=== PATIENT | male | born 1985 | race Caucasian/White ===

== ENCOUNTER → 2021-02-16 09:28 | Outpatient (CLI) | payer BC, SELFPAY ==
[2021-02-17 14:25] LABS: Hematocrit 41.8 % (41-53); Hemoglobin 13.9 g/dL (13.5-17.5); Mean Corpuscular HGB Conc 33.2 % (30-36); Mean Corpuscular Hemoglobin 28.8 PG (26-34); Mean Corpuscular Volume 86.6 fL (80-100); Platelet Count 126 X10^3/uL (150-400); Red Blood Cell Count 4.82 X10^6/uL (4.5-5.9); Red Cell Distribution Width 14.3 % (11.6-14.8); White Blood Cell Count 5.1 X10^3/uL (4.5-11.0)
[2021-02-17 14:42] LABS: Add Manual Diff / Slide Review YES
[2021-02-17 15:21] LABS: Hemoglobin A1C% w Est Avg Glu 5.3 % (4.0-6.0)
[2021-02-17 15:53] LABS: Smudge Cells 1+
[2021-02-17 15:54] LABS: Neutrophils Absolute Manual 1479 /uL (3000-5900); Total Cells Counted 100
[2021-02-17 17:18] LABS: Alanine Aminotransferase 39 IU/L (<50); Albumin 4.2 g/dL (3.5-5.0); Albumin Globulin Ratio 1.8 (1.0-2.8); Alkaline Phosphatase 54 U/L (38-126); Aspartate Aminotransferase 26 IU/L (17-59); BUN Creatinine Ratio 23.4 (6-22); Bilirubin Total 0.6 mg/dL (0.2-1.3); Blood Urea Nitrogen 22 mg/dL (9-20); Calcium 9.4 mg/dL (8.4-10.2); Carbon Dioxide 31 mmol/L (22-32); Chloride 102 mmol/L (98-107); Cholesterol 151 mg/dL (140-199); Estimated Glomerular Filt Rate > 60.0 mL/min (>60); Globulin 2.3 g/dL (1.7-4.1); Glucose 104 mg/dL (70-100); HDL Cholesterol 35 mg/dL (40-60); HEMOLYSIS < 15 (0-50); LDL Cholesterol Calculated 84 mg/dL (<100); Potassium 4.2 mmol/L (3.4-5.1); Sodium 139 mmol/L (137-145); Total Protein 6.5 g/dL (6.3-8.2); Triglycerides 158 mg/dL (35-150); Uric Acid 4.8 mg/dL (3.5-8.5)
[2021-02-17 17:23] LABS: Vitamin D 25 Hydroxy (D3) 46.4 ng/mL (30.0-100.0)
== END ==
PROVIDERS: PCP Physician Assistant; Visit Provider Physician Assistant
DX: E55.9 Vitamin D deficiency, unspecified (principal); E78.5 Hyperlipidemia, unspecified; F90.9 Attention-deficit hyperactivity disorder, unspecified type; M10.9 Gout, unspecified
CPT/HCPCS: 80053; 80061; 82306; 83036; 84550; 85007; 85025

== ENCOUNTER → 2021-04-16 08:53 | Outpatient (CLI) | payer BC, SELFPAY ==
[2021-04-16 22:44] LABS: COVID19 - ORCAS (NP or Nasal) POSITIVE (Negative)
== END ==
PROVIDERS: PCP Physician Assistant; Visit Provider Physician Assistant Medical
DX: U07.1 COVID-19 (principal); Z20.822 Contact with and (suspected) exposure to COVID-19
CPT/HCPCS: U0003

== ENCOUNTER → 2021-04-30 11:20 | Outpatient (CLI) | payer BC, SELFPAY ==
[2021-04-30 19:10] LABS: Add Manual Diff / Slide Review NO; Basophils Absolute Auto 0 /uL (0-100); Basophils Percent Auto 0.9 % (0-2); Eosinophils Absolute Auto 100 /uL (0-450); Eosinophils Percent Auto 1.2 % (2-4); Hematocrit 40.4 % (41-53); Hemoglobin 13.9 g/dL (13.5-17.5); Lymphocytes Absolute Auto 1500 /uL (1100-4500); Lymphocytes Percent Auto 33.4 % (25-40); Mean Corpuscular HGB Conc 34.5 % (30-36); Mean Corpuscular Hemoglobin 29.3 PG (26-34); Mean Corpuscular Volume 84.9 fL (80-100); Monocytes Absolute Auto 500 /uL (0-900); Monocytes Percent Auto 10.6 % (3-14); Neutrophils Absolute Auto 2500 /uL (1500-7000); Neutrophils Percent Auto 53.9 % (50-75); Platelet Count 128 X10^3/uL (150-400); Red Blood Cell Count 4.75 X10^6/uL (4.5-5.9); Red Cell Distribution Width 14.3 % (11.6-14.8); White Blood Cell Count 4.6 X10^3/uL (4.5-11.0)
[2021-05-03 16:21] LABS: HIV 1 & 2 Ab/Ag 4th Gen Combo NEGATIVE (NEGATIVE)
== END ==
PROVIDERS: PCP Physician Assistant; Visit Provider Physician Assistant
DX: D70.9 Neutropenia, unspecified (principal)
CPT/HCPCS: 85025; 87389

== ENCOUNTER → 2021-05-07 10:19 | Outpatient (CLI) | payer BC, SELFPAY ==
[2021-05-07 19:42] LABS: Uric Acid 4.8 mg/dL (3.5-8.5)
[2021-05-07 19:49] LABS: Rheumatoid Factor < 8.6 IU/mL (<12.0)
[2021-05-07 19:56] LABS: Erythrocyte Sedimentation Rate 2 MM/HR (0-15)
[2021-05-11 14:57] LABS: ANA Screen, IFA Negative (.)
== END ==
PROVIDERS: PCP Physician Assistant; Visit Provider Family Medicine
DX: M10.9 Gout, unspecified (principal)
CPT/HCPCS: 84550; 85651; 86038; 86430

== ENCOUNTER → 2022-02-25 10:33 | Outpatient (CLI) | payer BC, SELFPAY ==
--- NOTE | 2022-02-25 10:35 | DI.CT.S_ITS ---
PROCEDURE: CT KIDNEY URETER BLADDER (KUB) INDICATIONS: Recurrent nephrolithiasis TECHNIQUE: Axial sections were acquired from the lung bases to the pubic symphysis. Coronal and sagittal reformats were performed. For radiation dose reduction, the following was used: automated exposure control, adjustment of mA and/or kV according to patient size. COMPARISON: None. FINDINGS: Image quality: Excellent. Lung bases: No pleural effusion. Punctate left lower lobe pulmonary nodule. Heart: No significant findings. Small hiatal hernia. URINARY: No hydronephrosis. Papillary calcifications or nonobstructing kidney stones. Bladder: Normal wall thickness. No stones. ABDOMEN: Liver: Unremarkable. Gallbladder: Unremarkable. Biliary ducts: Unremarkable. Pancreas: Unremarkable. Spleen: Unremarkable. Adrenal Glands: Unremarkable. Stomach and Bowel: Stomach, small bowel loops, and colon are unremarkable. Diverticulosis. Normal appendix. Peritoneum: No abnormal intraperitoneal fluid. No free air. Ventral Wall: No hernia. Abdominal Nodes: No enlarged retroperitoneal or mesenteric lymph nodes. Vessels: Aorta and inferior vena cava are normal in size. PELVIS: Pelvic Organs: Unremarkable. Pelvic Nodes: Unremarkable. Miscellaneous: No inguinal hernias are seen. Bones: No suspicious lesion. IMPRESSION: No hydronephrosis. Subtle density near the renal papillae bilaterally. This could be seen in the setting of medullary sponge kidney/medullary nephrocalcinosis, papillary necrosis, or small nonobstructing kidney stones. Dictated by: Satya Joya M.D. on 02/25/2022 at 11:49 Approved by: Satya Joya M.D. on 02/25/2022 at 11:56
== END ==
PROVIDERS: PCP Family Medicine; Referring Provider Family Medicine; Visit Provider Family Medicine
DX: N20.0 Calculus of kidney (principal); M54.9 Dorsalgia, unspecified; F90.9 Attention-deficit hyperactivity disorder, unspecified type; G89.29 Other chronic pain
CPT/HCPCS: 74176

== ENCOUNTER → 2022-07-25 13:28 | Outpatient (CLI) | payer OTHER, SELFPAY ==
[2022-07-25 20:35] LABS: Cholesterol 164 mg/dL (140-199); Erythrocyte Sedimentation Rate 4 MM/HR (0-15); HDL Cholesterol 41 mg/dL (40-60); LDL Cholesterol Calculated 77 mg/dL (<100); Triglycerides 229 mg/dL (35-150)
[2022-07-25 20:58] LABS: C-Reactive Protein Quant < 0.5 mg/dL (<1.0)
[2022-07-27 00:36] LABS: Labcorp Hemoglobin (Hb) A1c 5.4 % (4.8-5.6)
[2022-07-28 15:58] LABS: ANA Screen, IFA Negative (.)
== END ==
PROVIDERS: PCP Family Medicine; Visit Provider Family Medicine
DX: F32.A Depression, unspecified (principal); G89.29 Other chronic pain; L40.9 Psoriasis, unspecified; M54.16 Radiculopathy, lumbar region; M54.50 Low back pain, unspecified
CPT/HCPCS: 80061; 83036; 85651; 86038; 86140

== ENCOUNTER → 2022-08-23 13:03 | Outpatient (CLI) | payer OTHER, SELFPAY ==
[2022-08-23 20:38] LABS: C-Reactive Protein Quant < 0.5 mg/dL (<1.0)
[2022-08-23 20:42] LABS: Rheumatoid Factor < 8.6 IU/mL (<12.0)
[2022-08-23 21:15] LABS: Erythrocyte Sedimentation Rate 1 MM/HR (0-15)
[2022-08-25 20:07] LABS: CCP Antibodies IgG/IgA 4 units (0-19)
[2022-08-29 16:15] LABS: ANA Screen, IFA NEGATIVE
[2022-09-02 17:36] LABS: HLA B27 Negative (.)
== END ==
PROVIDERS: Internal Medicine Rheumatology; PCP Family Medicine; Visit Provider Family Medicine
DX: D70.9 Neutropenia, unspecified (principal); L40.9 Psoriasis, unspecified; M54.50 Low back pain, unspecified; M54.9 Dorsalgia, unspecified; R21 Rash and other nonspecific skin eruption
CPT/HCPCS: 81374; 85651; 86038; 86140; 86200; 86430

== ENCOUNTER → 2023-06-13 11:16 | Outpatient (CLI) | payer OTHER, SELFPAY ==
[2023-06-13 19:19] LABS: Add Manual Diff / Slide Review NO; Basophils Absolute Auto 0 /uL (0-100); Basophils Percent Auto 0.3 % (0-2); Eosinophils Absolute Auto 300 /uL (0-450); Eosinophils Percent Auto 5.8 % (2-4); Hematocrit 39.4 % (41-53); Hemoglobin 13.4 g/dL (13.5-17.5); Lymphocytes Absolute Auto 1200 /uL (1100-4500); Lymphocytes Percent Auto 20.5 % (25-40); Mean Corpuscular Hemoglobin 29.4 PG (26-34); Mean Corpuscular Volume 86.7 fL (80-100); Monocytes Absolute Auto 600 /uL (0-900); Neutrophils Absolute Auto 3600 /uL (1500-7000); Neutrophils Percent Auto 62.4 % (50-75); Platelet Count 126 X10^3/uL (150-400); Red Blood Cell Count 4.54 X10^6/uL (4.5-5.9); Red Cell Distribution Width 14.9 % (11.6-14.8); White Blood Cell Count 5.7 X10^3/uL (4.5-11.0)
[2023-06-13 19:48] LABS: Alanine Aminotransferase 28 IU/L (<50); Albumin 4.3 g/dL (3.5-5.0); Albumin Globulin Ratio 1.7 (1.0-2.8); Alkaline Phosphatase 60 U/L (38-126); Aspartate Aminotransferase 24 IU/L (17-59); BUN Creatinine Ratio 32.5 (6-22); Bilirubin Total 0.6 mg/dL (0.2-1.3); Blood Urea Nitrogen 25 mg/dL (9-20); Calcium 9.1 mg/dL (8.4-10.2); Carbon Dioxide 29 mmol/L (22-32); Cholesterol 144 mg/dL (140-199); Estimated Glomerular Filt Rate > 60 mL/min (>60); Globulin 2.6 g/dL (1.7-4.1); Glucose 93 mg/dL (70-100); HDL Cholesterol 36 mg/dL (40-60); HEMOLYSIS < 15 (0-50); LDL Cholesterol Calculated 75 mg/dL (<100); Total Protein 6.9 g/dL (6.3-8.2); Triglycerides 163 mg/dL (35-150)
[2023-06-13 19:56] LABS: Chloride 104 mmol/L (98-107); Potassium 4.3 mmol/L (3.4-5.1); Sodium 138 mmol/L (137-145)
[2023-06-13 20:21] LABS: Prostate Specific Antigen Scrn 1.64 ng/mL (0.1-4.0)
== END ==
PROVIDERS: PCP Family Medicine; Visit Provider Family Medicine
DX: Z51.81 Encounter for therapeutic drug level monitoring (principal); Z12.5 Encounter for screening for malignant neoplasm of prostate; M10.9 Gout, unspecified; D70.9 Neutropenia, unspecified; E78.5 Hyperlipidemia, unspecified; F90.9 Attention-deficit hyperactivity disorder, unspecified type; Z80.42 Family history of malignant neoplasm of prostate
CPT/HCPCS: 80053; 80061; 85025; G0103

== ENCOUNTER → 2024-06-28 08:08 | Outpatient (CLI) | payer BC, SELFPAY ==
[2024-06-28 19:42] LABS: Add Manual Diff / Slide Review NO; Basophils Absolute Auto 0 /uL (0-100); Basophils Percent Auto 0.6 % (0-2); Eosinophils Absolute Auto 200 /uL (0-450); Eosinophils Percent Auto 2.2 % (2-4); Hematocrit 43.1 % (41-53); Hemoglobin 14.6 g/dL (13.5-17.5); Lymphocytes Absolute Auto 2000 /uL (1100-4500); Mean Corpuscular HGB Conc 33.9 % (30-36); Mean Corpuscular Hemoglobin 29.7 PG (26-34); Mean Corpuscular Volume 87.7 fL (80-100); Monocytes Absolute Auto 500 /uL (0-900); Neutrophils Absolute Auto 4700 /uL (1500-7000); Neutrophils Percent Auto 63.2 % (50-75); Platelet Count 147 X10^3/uL (150-400); Red Blood Cell Count 4.91 X10^6/uL (4.5-5.9); Red Cell Distribution Width 14.1 % (11.6-14.8); White Blood Cell Count 7.5 X10^3/uL (4.5-11.0)
[2024-06-28 19:50] LABS: Alanine Aminotransferase 24 IU/L (<50); Albumin 4.8 g/dL (3.5-5.0); Albumin Globulin Ratio 2.1 (1.0-2.8); Alkaline Phosphatase 65 U/L (38-126); Aspartate Aminotransferase 25 IU/L (17-59); Bilirubin Total 0.7 mg/dL (0.2-1.3); Blood Urea Nitrogen 24 mg/dL (9-20); Calcium 9.4 mg/dL (8.4-10.2); Carbon Dioxide 24 mmol/L (22-32); Chloride 102 mmol/L (98-107); Cholesterol 152 mg/dL (140-199); Estimated Glomerular Filt Rate > 60 mL/min (>60); Globulin 2.3 g/dL (1.7-4.1); Glucose 102 mg/dL (70-100); HDL Cholesterol 38 mg/dL (40-60); HEMOLYSIS < 15 (0-50); LDL Cholesterol Calculated 88 mg/dL (<100); Potassium 4.6 mmol/L (3.4-5.1); Sodium 138 mmol/L (137-145); Total Protein 7.1 g/dL (6.3-8.2); Triglycerides 130 mg/dL (35-150)
[2024-06-28 20:21] LABS: Prostate Specific Antigen Scrn 0.715 ng/mL (0.1-4.0)
== END ==
PROVIDERS: PCP Family Medicine; Visit Provider Family Medicine
DX: E78.5 Hyperlipidemia, unspecified (principal); Z82.49 Family history of ischemic heart disease and other diseases of the circulatory system; Z80.42 Family history of malignant neoplasm of prostate; Z12.5 Encounter for screening for malignant neoplasm of prostate
CPT/HCPCS: 80053; 80061; 85025; G0103

== ENCOUNTER → 2025-02-26 11:56 | Outpatient (CLI) | payer BC, SELFPAY | PROVIDERS: PCP Family Medicine; Visit Provider Family Medicine | DX: Z51.81 Encounter for therapeutic drug level monitoring (principal) | CPT/HCPCS: 84450 ==